=== PATIENT | male | born 1940 | race African-American/Black ===

== ENCOUNTER → 2020-08-05 | Outpatient (CLI) | payer MEDICARE, MEDICAID | END | disposition home or self-care (01) | LOC: MRI 07-28 12:48 | PROVIDERS: ATTEND Neurological Surgery | DX: R51.9 Headache, unspecified (principal); Z86.73 Personal history of transient ischemic attack (TIA), and cerebral infarction without residual deficits | CPT/HCPCS: 70551 ==

== ENCOUNTER 2021-12-11 12:18 | Emergency (ER) | payer MEDICARE, MEDICAID ==
[~2021-12-11] VITALS: Ht 147.3 cm; Wt 54.0 kg
[2021-12-11 13:02] LABS: BASOPHILS % 0.4 % (0.0-2.0); EOSINOPHILS % 1.4 % (0.0-5.0); HEMATOCRIT. 36.9 % (42.0-52.0); HEMOGLOBIN. 12.5 g/dL (14.0-18.0); MEAN CORPUSCULAR HEMOGLOBIN 29.8 pg (28.0-32.0); MEAN CORPUSCULAR VOLUME 87.9 fL (80.0-94.0); MEAN PLATELET VOLUME 7.8 fl (7.4-10.4); MONOCYTES % 9.6 % (2.0-8.0); NEUTROPHILS % 61.6 % (40.0-76.0); PLATELET 131 x1000/uL (130-400); RED CELL DISTRIBUTION WIDTH 14.5 % (11.6-14.6)
[2021-12-11 13:10] LABS: CHLORIDE 107 mEq/L (98-107)
[2021-12-11] MEDS ORDERED: NITROGLYCERIN 0.4MG TABLET SL SL PRN (14:15)
[2021-12-11] MEDS ORDERED: ASPIRIN 81MG TABLET PO ONE (14:15)
[2021-12-11 14:49] VITALS: BP 135/71
== END 2021-12-11 15:17 | disposition home or self-care (01) ==
LOC: ER 12:18 → CANBEDREQ 22:39
DX: R07.2 Precordial pain (principal); R00.1 Bradycardia, unspecified; I25.10 Atherosclerotic heart disease of native coronary artery without angina pectoris; Z95.5 Presence of coronary angioplasty implant and graft; E78.00 Pure hypercholesterolemia, unspecified; Z86.73 Personal history of transient ischemic attack (TIA), and cerebral infarction without residual deficits
CPT/HCPCS: 36415; 71045; 80053; 83880; 84484; 85025; 93005; 99285; Z7610

== ENCOUNTER → 2024-06-23 | Day surgery (SDC) | payer MEDICARE, MEDICAID ==
[~2024-06-23] VITALS: Ht 152.4 cm; Wt 52.2 kg
[~2024-06-23] MED LIST: ASPI-1406 PO; CLOP-31 PO; DOCU100T28 PO; ETOMIDATE 2MG/ML 10ML VIAL IV ONE; FENTANYL CITRATE/PF 50MCG/ML 2ML VIAL ONE; FERR325T30 PO; LACTATED RINGERS 1,000 ML IV SCH; MIDAZOLAM HCL 2 MG/2 ML VIAL ONE; MONT-39 PO; ONDANSETRON HCL 4MG/2ML INJ IV NR; PROPOFOL 200MG/20ML VIAL IV ONE; ROSU20TA2 PO; TAMS-11 PO
[2024-06-23 10:35] LABS: BASOPHILS % 0.4 % (0.0-2.0); EOSINOPHILS % 1.2 % (0.0-5.0); HEMATOCRIT. 31.7 % (42.0-52.0); HEMOGLOBIN. 10.1 g/dL (14.0-18.0); LYMPHOCYTES % 18.6 % (20.0-50.0); MEAN CORPUSCULAR HEMOGLOBIN 27.4 pg (28.0-32.0); MEAN CORPUSCULAR HGB CONC 31.9 g/dL (31.0-37.0); MEAN CORPUSCULAR VOLUME 85.8 fL (80.0-94.0); NEUTROPHILS % 70.8 % (40.0-76.0); PLATELET 161 x1000/uL (130-400); RED BLOOD CELL COUNT 3.69 mill/uL (4.7-6.1); RED CELL DISTRIBUTION WIDTH 18.4 % (11.6-14.6); WHITE BLOOD COUNT 4.8 x1000/uL (4.5-11.0)
[2024-06-23 10:39] LABS: CLARITY URINE CLEAR (CLEAR); COLOR URINE YELLOW (YELLOW); GLUCOSE URINE NEGATIVE (NEGATIVE); KETONES URINE NEGATIVE (NEGATIVE); LEUKOCYTE ESTERASE URINE 1+ (NEGATIVE); NITRITE URINE NEGATIVE (NEGATIVE); OCCULT BLOOD URINE 2+ (NEGATIVE); PH URINE 5.5 (4.5-8.0); PROTEIN URINE NEGATIVE (NEGATIVE); SPECIFIC GRAVITY URINE 1.015 (1.005-1.030); UROBILINOGEN URINE 0.2 E.U./dL (0.2-1.0)
[2024-06-23 10:40] LABS: POTASSIUM 4.2 mEq/L (3.5-5.1)
[2024-06-23 10:41] LABS: CALCIUM 8.9 mg/dL (8.7-10.4)
[2024-06-23 10:46] LABS: CREATININE 1.4 mg/dL (0.6-1.3); PARTIAL THROMBOPLASTIN TIME 26.2 sec (23.4-31.0); PROTHROMBIN TIME 11.1 sec (9.6-11.0)
[2024-06-23 11:22] LABS: SQUAMOUS EPITHELIAL CELL URINE FEW /lpf (RARE/1+)
[2024-06-23 11:24] LABS: MUCUS URINE TRACE /lpf (NONE/TRACE)
[2024-06-23 11:29] LABS: BACTERIA URINE TRACE
[2024-06-23] MEDS: HYDROMORPHONE HCL/PF 1MG/ML INJ IV PRN (14:31)
[2024-06-23] MEDS: OXYBUTYNIN CHLORIDE 5MG TABLET PO NR (15:14)
[2024-06-23 16:04] VITALS: BP 145/66; PULSE 59; RESP 17
== END | disposition home or self-care (01) ==
LOC: OR 09:53
PROVIDERS: ATTEND Urology
DX: R31.0 Gross hematuria (principal); N35.919 Unspecified urethral stricture, male, unspecified site; R82.90 Unspecified abnormal findings in urine; C67.9 Malignant neoplasm of bladder, unspecified; Z85.46 Personal history of malignant neoplasm of prostate; Z79.02 Long term (current) use of antithrombotics/antiplatelets; Z87.891 Personal history of nicotine dependence; Z88.5 Allergy status to narcotic agent; Z79.82 Long term (current) use of aspirin; Z79.899 Other long term (current) drug therapy; Z98.890 Other specified postprocedural states; Z82.49 Family history of ischemic heart disease and other diseases of the circulatory system
CPT/HCPCS: 52281; 80048; 81003; 85025; 85610; 85730; 36415; 88305; 71045; 93005; J3010; J3490; J2250; J2704; J1170

== ENCOUNTER 2025-10-02 16:26 | Emergency (ER) | payer MEDICARE, MEDICAID ==
[~2025-10-02] VITALS: Ht 152.4 cm; Wt 45.0 kg
[~2025-10-02 16:26] MED LIST changes: -ETOMIDATE 2MG/ML 10ML VIAL IV ONE; -FENTANYL CITRATE/PF 50MCG/ML 2ML VIAL ONE; -LACTATED RINGERS 1,000 ML IV SCH; -MIDAZOLAM HCL 2 MG/2 ML VIAL ONE; -ONDANSETRON HCL 4MG/2ML INJ IV NR; -PROPOFOL 200MG/20ML VIAL IV ONE; -TAMS-11 PO; +TAMS-54 PO
[2025-10-02 16:29] VITALS: O2SAT 99
[2025-10-02 17:15] LABS: BASOPHILS % 0.3 % (0.0-2.0); EOSINOPHILS % 0.8 % (0.0-5.0); HEMATOCRIT. 30.0 % (42.0-52.0); HEMOGLOBIN. 9.6 g/dL (14.0-18.0); LYMPHOCYTES % 12.4 % (20.0-50.0); MEAN PLATELET VOLUME 7.2 fl (7.4-10.4); MONOCYTES % 6.6 % (2.0-8.0); NEUTROPHILS % 79.9 % (40.0-76.0); PLATELET 162 x1000/uL (130-400); RED BLOOD CELL COUNT 3.35 mill/uL (4.7-6.1); RED CELL DISTRIBUTION WIDTH 16.1 % (11.6-14.6)
[2025-10-02 17:39] LABS: CREATININE 1.3 mg/dL (0.6-1.3); UREA NITROGEN BLOOD 25 mg/dL (9-23)
[2025-10-02 19:45] VITALS: BP 134/62; PULSE 77; RESP 16; TEMP 37; O2SAT 98
== END 2025-10-02 19:49 | disposition home or self-care (01) ==
LOC: ER 16:26
DX: I73.9 Peripheral vascular disease, unspecified (principal); E78.00 Pure hypercholesterolemia, unspecified; Z79.82 Long term (current) use of aspirin; Z79.02 Long term (current) use of antithrombotics/antiplatelets; Z86.73 Personal history of transient ischemic attack (TIA), and cerebral infarction without residual deficits; Z79.899 Other long term (current) drug therapy; Z88.5 Allergy status to narcotic agent
CPT/HCPCS: 36415; 80048; 85025; 93005; 99284